=== PATIENT | male | born 1990 | race Two or more races ===

== ENCOUNTER 2020-06-07 11:19 | Emergency (ER) | payer SELFPAY ==
[~2020-06-07] VITALS: Ht 167.6 cm; Wt 78.0 kg
[2020-06-07 11:21] VITALS: BP 123/83
== END 2020-06-07 12:23 | disposition left against medical advice (07) ==
LOC: ER 11:19
DX: R21 Rash and other nonspecific skin eruption (principal); Z53.21 Procedure and treatment not carried out due to patient leaving prior to being seen by health care provider